=== PATIENT | female | born 1950 | race Caucasian/White ===

== ENCOUNTER 2020-07-18 13:22 | Emergency (ER) | payer MEDICARE, SELFPAY ==
[2020-07-18 13:36] VITALS: BP 108/72; PULSE 80; RESP 20; TEMP 36.4; O2SAT 97
[2020-07-18 14:13] LABS: Add Manual Diff / Slide Review NO; Basophils Absolute Auto 0 /uL (0-100); Basophils Percent Auto 0.7 % (0-2); Eosinophils Absolute Auto 200 /uL (0-450); Eosinophils Percent Auto 3.4 % (2-4); Hematocrit 37.8 % (36-46); Hemoglobin 12.4 g/dL (12.0-16.0); Lymphocytes Absolute Auto 1700 /uL (1100-4500); Mean Corpuscular HGB Conc 32.7 % (30-36); Mean Corpuscular Hemoglobin 31.1 PG (26-34); Mean Corpuscular Volume 95.2 fL (80-100); Monocytes Absolute Auto 600 /uL (0-900); Monocytes Percent Auto 9.7 % (3-14); Neutrophils Absolute Auto 3300 /uL (1500-7000); Neutrophils Percent Auto 56.2 % (50-75); Platelet Count 223 X10^3/uL (150-400); Red Blood Cell Count 3.97 X10^6/uL (4.0-5.2); Red Cell Distribution Width 13.5 % (11.6-14.8); White Blood Cell Count 5.8 X10^3/uL (4.5-11.0)
[2020-07-18 14:20] LABS: Prothrombin Time 11.1 SECONDS (10.1-12.7)
[2020-07-18] MEDS: KETOROLAC 60 MG/2 ML VIAL 15 MG IV (14:20)
[2020-07-18] MEDS: SODIUM CHLORIDE 0.9% 1,000 ML 150 ML IV (14:20)
[2020-07-18] MEDS: ONDANSETRON 4 MG/2 ML INJ IV (14:20)
[2020-07-18 14:22] LABS: PTT Partial Thromboplastin Tim 32 SECONDS (26.4-36.2)
[2020-07-18 14:24] LABS: Alanine Aminotransferase 17 IU/L (<35); Albumin 4.3 g/dL (3.5-5.0); Albumin Globulin Ratio 1.7 (1.0-2.8); Alkaline Phosphatase 73 U/L (38-126); Aspartate Aminotransferase 28 IU/L (14-36); BUN Creatinine Ratio 26.7 (6-22); Bilirubin Total 0.5 mg/dL (0.2-1.3); Blood Urea Nitrogen 23 mg/dL (7-17); Calcium 9.8 mg/dL (8.4-10.2); Carbon Dioxide 28 mmol/L (22-32); Chloride 102 mmol/L (98-107); Estimated Glomerular Filt Rate > 60.0 mL/min (>60); Globulin 2.6 g/dL (1.7-4.1); Glucose 128 mg/dL (80-110); HEMOLYSIS < 15 (0-50); Lipase 175 U/L (23-300); Potassium 3.8 mmol/L (3.4-5.1); Sodium 137 mmol/L (137-145); Total Protein 6.9 g/dL (6.3-8.2)
--- NOTE | 2020-07-18 14:52 | DI.CT.S_ITS ---
PROCEDURE: CT KIDNEY URETER BLADDER (KUB) INDICATIONS: Right flank pain TECHNIQUE: Noncontrast 5 mm thick sections acquired from the diaphragms to the symphysis. 5 mm thick coronal and sagittal reformats were then performed. For radiation dose reduction, the following was used: automated exposure control, adjustment of mA and/or kV according to patient size. COMPARISON: None. FINDINGS: Image quality: Excellent. Lung bases: Lung bases are clear. Heart size is normal. There is a small hiatal hernia. There is moderate concentric thickening of the distal esophagus. Urinary system: There is a 9 x 7 x 9 mm stone at the left uterine pelvic junction. There is mild left hydronephrosis. There are 3 small foci of 1-2 mm calcifications in right kidney. No right hydronephrosis. Both kidneys are normal in size. Kidneys demonstrate lobular contour. There are several small cortical hyperdense nodules in left kidney. Both ureters appear non-dilated throughout their expected courses. There is a 2 mm calcification along the course of the distal right ureter, suspicious for tiny stone. Bladder wall thickness is normal; no calcified bladder stones. Other solid organs: Liver is normal in size. Gallbladder is absent. Pancreas is normal in contours. Spleen is normal in size. There are small calcific foci in spleen, consistent with old granulomas. No adrenal nodules. Peritoneum and bowel: Gastric banding. Unenhanced bowel loops demonstrate normal wall thickness and caliber. Normal appendix. There is a large amount of stool in colon. No free fluid or air. Nodes and vessels: No retroperitoneal or mesenteric adenopathy by size criteria. Aorta and inferior vena cava are normal in caliber. Abdominal wall: No ventral hernias. Pelvis: Uterus is normal. No adnexal mass. No free pelvic fluid. No inguinal hernias or adenopathy. Bones: No suspicious bony lesions. No vertebral body compression fractures. Severe degenerative changes in lumbar spine. IMPRESSION: 1. A 9 x 7 x 9 mm stone at the left UPJ causing mild left hydronephrosis. 2. Possible 2 mm distal right ureteral stone. No right hydronephrosis. 3. Small nonobstructing right renal calculi. No right hydronephrosis. 4. Hyperdense cortical nodules in left kidney. Recommend follow-up ultrasound to document cystic nature. 5. Concentric thickening of the distal esophagus. Recommend upper endoscopy for follow-up evaluation. 6. A large amount of stool in colon. Dictated by: Elissa Davies M.D. on 07/18/2020 at 14:51 Approved by: Elissa Davies M.D. on 07/18/2020 at 15:17
--- NOTE | 2020-07-18 15:19 | ED_ITS ---
HPI - Abdominal Pain <JOSE Walton - Last Filed: 07/18/20 20:58> General Chief Complaint: Abdominal Pain Stated Complaint: THINKS PASSING KIDNEY STONE LOTS OF PAIN Time Seen by Provider: 07/18/20 14:20 Source: patient Mode of arrival: Ambulatory History of Present Illness HPI narrative: 70yo female with a history of kidney stones, presents to emergency department for concern of a right-sided kidney stone. She states approximately 2 days ago she developed right flank pain and then developed nausea today. Patient denies any abdominal pain, vomiting, fevers, dysuria, diarrhea, or any other concerns. Patient states she recently moved to [place] from [place] and does not have a urologist and [place]. Related Data Previous Rx's Medication Instructions Recorded ciprofloxacin HCl 500 mg PO BID 7 Days #14 tab 07/18/20 ondansetron 4 mg PO Q8H PRN #14 tab 07/18/20 oxycodone-acetaminophen [Percocet] 1 tab PO Q4-6H PRN #14 tab 07/18/20 tamsulosin 0.4 mg PO DAILY 20 Days #20 cap 07/18/20 Allergies Allergy/AdvReac Type Severity Reaction Status Date / Time No Known Drug Allergies Allergy Verified 07/18/20 13:38 Review of Systems <JOSE Walton - Last Filed: 07/18/20 20:58> Review of Systems Narrative: REVIEW OF SYSTEMS: GENERAL: Denies fever, chills, malaise, or wt. loss. HENT: No head trauma, sore throat, or dysphagia. EYES: No vision changes. CARDIOVASCULAR: No chest pain. RESPIRATORY: No shortness of breath or cough. GASTROINTESTINAL: Complains of nausea, see HPI GENITOURINARY: Reports right-sided flank pain, see HPI. MUSCULOSKELETAL: No pain, weakness, or trauma. INTEGUMENTARY: No rash, lesions, or pruritus. NEURO: No numbness, tingling, memory loss, confusion, or headaches. PSYCH: No behavior or mood changes. Patient History <JOSE Walton - Last Filed: 07/18/20 20:58> Medical History Renal calculi (Acute) Social History Smoking Status: Never smoker Smoking Status: Never smoker Exam <JOSE Walton - Last Filed: 07/18/20 20:58> Initial Vital Signs Initial Vital Signs: Vital Signs Temperature 97.5 F L 07/18/20 13:36 Pulse Rate 80 07/18/20 13:36 Respiratory Rate 20 07/18/20 13:36 Blood Pressure 108/72 07/18/20 13:36 Pulse Oximetry 97 07/18/20 13:36 PHYSICAL EXAMINATION: GENERAL: Well groomed, alert, and cooperative. Answers questions promptly and appropriately. Vital signs noted. HENT: Normocephalic, atraumatic. Hearing intact. Oral mucosa is pink and moist. EYES: Conjunctiva pink, sclera white, no periorbital swelling. CARDIOVASCULAR: S1 and S2 sounds normal. Regular rate and rhythm, no murmurs, clicks, or bruits. No pedal edema. RESPIRATORY: Normal respiratory rate, trachea midline, airway patent. No stridor, nasal flaring or accessory muscle use. Lungs are clear in all mustafa without wheeze, rhonchi, or crackles. GASTROINTESTINAL: Bowel sounds normoactive. Abdomen is soft and [non-tender]. No organomegaly, no palpable masses. GENITALURINARY: Right flank tenderness. MUSCULOSKELETAL: Normal gait and coordination. Equal tone and mass bilaterally. EXTREMITIES: CMS intact, no pedal edema. SKIN: Warm, dry, soft, appropriate color for ethnicity. No lesions, rashes, or wounds to visualized areas. NEURO: Alert and Oriented X 3. Good coordination. No ataxia, or sensory deficits, or cognitive issues. PSYCH: Appropriate affect and mood. <Lico Delarosa MD - Last Filed: 07/19/20 13:26> Initial Vital Signs Initial Vital Signs: Vital Signs Temperature 97.5 F L 07/18/20 13:36 Pulse Rate 80 07/18/20 13:36 Respiratory Rate 07/18/20 13:36 Blood Pressure 108/72 07/18/20 13:36 Pulse Oximetry 97 07/18/20 13:36 Course <JOSE Walton - Last Filed: 07/18/20 20:58> Course Course Narrative: Patient reported improved symptoms after administration of Toradol, fluids, and Zofran. Orders Ordered: Discontinued Medications Sodium Chloride (Normal Saline 0.9%) 1,000 mls @ 150 mls/hr IV CONT [facility] Last Infusion: 07/18/20 17:39 Dose: 0 mls/hr Documented by: Admin: 07/18/20 14:20 Dose: 150 mls/hr Documented by: ROSIE Ketorolac Tromethamine (Toradol) 15 mg IV NOW ONE Stop: 07/18/20 14:07 Last Admin: 07/18/20 14:20 Dose: 15 mg Documented by: ROSIE Ondansetron HCl (Zofran) 4 mg IV NOW ONE Stop: 07/18/20 14:07 Last Admin: 07/18/20 14:20 Dose: 4 mg Documented by: ROSIE Oxycodone/Acetaminophen (Percocet 5/325) 1 tab PO NOW ONE Stop: 07/18/20 16:55 Last Admin: 07/18/20 17:18 Dose: 1 tab Documented by: ROBY Vital Signs Vital signs: Vital Signs - 8 hr 07/18/20 13:36 07/18/20 17:36 Temperature 97.5 F L Pulse Rate 80 82 Respiratory Rate 20 15 Blood Pressure 108/72 122/78 Pulse Oximetry 97 99 <Lico Delarosa MD - Last Filed: 07/19/20 13:26> Orders Ordered: Discontinued Medications Sodium Chloride (Normal Saline 0.9%) 1,000 mls @ 150 mls/hr IV CONT [facility] Last Infusion: 07/18/20 17:39 Dose: 0 mls/hr Documented by: Admin: 07/18/20 14:20 Dose: 150 mls/hr Documented by: ROSIE Ketorolac Tromethamine (Toradol) 15 mg IV NOW ONE Stop: 07/18/20 14:07 Last Admin: 07/18/20 14:20 Dose: 15 mg Documented by: ROSIE Ondansetron HCl (Zofran) 4 mg IV NOW ONE Stop: 07/18/20 14:07 Last Admin: 07/18/20 14:20 Dose: 4 mg Documented by: ROSIE Oxycodone/Acetaminophen (Percocet 5/325) 1 tab PO NOW ONE Stop: 07/18/20 16:55 Last Admin: 07/18/20 17:18 Dose: 1 tab Documented by: KSCHERE Vital Signs Vital signs: Vital Signs - 8 hr 07/18/20 13:36 07/18/20 17:36 Temperature 97.5 F L Pulse Rate 80 82 Respiratory Rate 20 15 Blood Pressure 108/72 122/78 Pulse Oximetry 97 99 MDM - Abdominal Pain <JOSE Walton - Last Filed: 07/18/20 20:58> Medical Records Attestation: I reviewed the patient's medical records. Lab Data Attestation: I reviewed the patient's lab results. Result diagrams: 07/18/20 14:05 07/18/20 14:05 Labs: Lab Results 07/18/20 07/18/20 07/18/20 Range/Units 14:05 14:05 14:05 WBC 5.8 (4.5-11.0) X10^3/uL RBC 3.97 L (4.0-5.2) X10^6/uL Hgb 12.4 (12.0-16.0) g/dL Hct 37.8 (36-46) % MCV 95.2 (80-100) fL MCH 31.1 (26-34) PG MCHC 32.7 (30-36) % RDW 13.5 (11.6-14.8) % Plt Count 223 (150-400) X10^3/uL Neut % (Auto) 56.2 (50-75) % Lymph % (Auto) 30.0 (25-40) % [facility] % (Auto) 9.7 (3-14) % Eos % (Auto) 3.4 (2-4) % Baso % (Auto) 0.7 (0-2) % Neut # (Auto) 3300 (2571-5128) /uL Lymph # (Auto) 1700 (1890-0103) /uL [facility] [place] # (Auto) 600 (0-900) /uL Eos # (Auto) 200 (0-450) /uL Baso # (Auto) 0 (0-100) /uL PT 11.1 (10.1-12.7) SECONDS INR 1.0 (0.9-1.3) APTT 32 (26.4-36.2) SECONDS Sodium 137 (137-145) mmol/L Potassium 3.8 (3.4-5.1) mmol/L Chloride 102 (98-107) mmol/L Carbon Dioxide 28 (22-32) mmol/L BUN 23 H (7-17) mg/dL Creatinine 0.86 (0.52-1.04) mg/dL Estimated GFR > 60.0 (>60) mL/min BUN/Creatinine Ratio 26.7 H (6-22) Glucose 128 H (80-110) mg/dL Calcium 9.8 (8.4-10.2) mg/dL Total Bilirubin 0.5 (0.2-1.3) mg/dL AST 28 (14-36) IU/L ALT 17 (<35) IU/L Alkaline Phosphatase 73 (38-126) U/L Total Protein 6.9 (6.3-8.2) g/dL Albumin 4.3 (3.5-5.0) g/dL Globulin 2.6 (1.7-4.1) g/dL Albumin/Globulin Ratio 1.7 (1.0-2.8) Lipase 175 (23-300) U/L Urine RBC (0-5/HPF) Urine WBC (0-5/HPF) Ur Squamous Epith Cells (0-5/HPF) Amorphous Sediment Urine Bacteria (None) Ur Culture Indicated? 07/18/20 Range/Units 15:47 WBC (4.5-11.0) X10^3/uL RBC (4.0-5.2) X10^6/uL Hgb (12.0-16.0) g/dL Hct (36-46) % MCV (80-100) fL MCH (26-34) PG MCHC (30-36) % RDW (11.6-14.8) % Plt Count (150-400) X10^3/uL Neut % (Auto) (50-75) % Lymph % (Auto) (25-40) % [place] % (Auto) (3-14) % Eos % (Auto) (2-4) % Baso % (Auto) (0-2) % Neut # (Auto) (9663-2034) /uL Lymph # (Auto) (5091-2891) /uL [facility] # (Auto) (0-900) /uL Eos # (Auto) (0-450) /uL Baso # (Auto) (0-100) /uL PT (10.1-12.7) SECONDS INR (0.9-1.3) APTT (26.4-36.2) SECONDS Sodium (137-145) mmol/L Potassium (3.4-5.1) mmol/L Chloride (98-107) mmol/L Carbon Dioxide (22-32) mmol/L BUN (7-17) mg/dL Creatinine (0.52-1.04) mg/dL Estimated GFR (>60) mL/min BUN/Creatinine Ratio (6-22) Glucose (80-110) mg/dL Calcium (8.4-10.2) mg/dL Total Bilirubin (0.2-1.3) mg/dL AST (14-36) IU/L ALT (<35) IU/L Alkaline Phosphatase (38-126) U/L Total Protein (6.3-8.2) g/dL Albumin (3.5-5.0) g/dL Globulin (1.7-4.1) g/dL Albumin/Globulin Ratio (1.0-2.8) Lipase (23-300) U/L Urine RBC None seen (0-5/HPF) Urine WBC 5-10/hpf H (0-5/HPF) Ur Squamous Epith Cells 0-1 /hpf (0-5/HPF) Amorphous Sediment 1+ Urine Bacteria Occasional (0-1) (None) Ur Culture Indicated? Specimen cultured Point of care testing: Urine Dip Bedside Urine Glucose Negative Bedside Urine Bilirubin - Negative Bedside Urine Ketone - Negative Urine Specific [place] 1.015 Bedside Urine Occult Blood - Negative Bedside Urine pH 5.5 Bedside Urine Protein - Negative Bedside Urine Urobilinogen - Negative Bedside Urine Nitrite - Negative Bedside Urine Leukocytes + [address] scan - abdomen/pelvis: Radiologist's Impression: [address] [address] [address] Scan Report Signed Patient: Marina Kaur FMR#: [id number] : 1Acct:[id number] Age/Sex: 70 / FDate of Service: 07/18/20 Loc: ED Accession Number: [id number] Procedure: CT kidney ureter bladder (KUB) Ordering Provider: Rahel Perez PROCEDURE: CT KIDNEY URETER BLADDER (KUB) INDICATIONS: Right flank pain TECHNIQUE: Noncontrast 5 mm thick sections acquired from the diaphragms to the symphysis. 5 mm thick coronal and sagittal reformats were then performed. For radiation dose reduction, the following was used: automated exposure control, adjustment of mA and/or kV according to patient size. COMPARISON: None. FINDINGS: Image quality: Excellent. Lung bases: Lung bases are clear. Heart size is normal. There is a small hiatal hernia. There is moderate concentric thickening of the distal esophagus. Urinary system: There is a 9 x 7 x 9 mm stone at the left uterine pelvic junction. There is mild left hydronephrosis. There are 3 small foci of 1-2 mm calcifications in right kidney. No right hydronephrosis. Both kidneys are normal in size. Kidneys demonstrate lobular contour. There are several small cortical hyperdense nodules in left kidney. Both ureters appear non-dilated throughout their expected courses. There is a 2 mm calcification along the course of the distal right ureter, suspicious for tiny stone. Bladder wall thickness is normal; no calcified bladder stones. Other solid organs: Liver is normal in size. Gallbladder is absent. Pancreas is normal in contours. Spleen is normal in size. There are small calcific foci in spleen, consistent with old granulomas. No adrenal nodules. Peritoneum and bowel: Gastric banding. Unenhanced bowel loops demonstrate normal wall thickness and caliber. Normal appendix. There is a large amount of stool in colon. No free fluid or air. Nodes and vessels: No retroperitoneal or mesenteric adenopathy by size criteria. Aorta and inferior vena cava are normal in caliber. Abdominal wall: No ventral hernias. Pelvis: Uterus is normal. No adnexal mass. No free pelvic fluid. No inguinal hernias or adenopathy. Bones: No suspicious bony lesions. No vertebral body compression fractures. Severe degenerative changes in lumbar spine. IMPRESSION: 1. A 9 x 7 x 9 mm stone at the left UPJ causing mild left hydronephrosis. 2. Possible 2 mm distal right ureteral stone. No right hydronephrosis. 3. Small nonobstructing right renal calculi. No right hydronephrosis. 4. Hyperdense cortical nodules in left kidney. Recommend follow-up ultrasound to document cystic nature. 5. Concentric thickening of the distal esophagus. Recommend upper endoscopy for follow-up evaluation. 6. A large amount of stool in colon. Dictated by: Elissa Davies M.D. on 07/18/2020 at 14:51 Approved by: Elissa Davies M.D. on 07/18/2020 at 15:17 ECG Data Interpretation: History and examination consistent with renal calculi as seen on CT. Patient has a fairly large renal calculi with a mild hydronephrosis, renal function intact. Given white blood cells and bacteria in urine, patient was started on antibiotics. She currently has a urologist in [place], she was encouraged to call them immediately and schedule an appointment. Patient was discharged with tamsulosin, pain medication, antibiotics, and nausea medication. She was encouraged to return emergency department immediately for any new or worsening symptoms. Less concern for sepsis given the lack of tachycardia or fever. Patient agreed to plan of care verbalized understanding. <Lico Delarosa MD - Last Filed: 07/19/20 13:26> Lab Data Labs: Lab Results 07/18/20 07/18/20 07/18/20 Range/Units 14:05 14:05 14:05 WBC 5.8 (4.5-11.0) X10^3/uL RBC 3.97 L (4.0-5.2) X10^6/uL Hgb 12.4 (12.0-16.0) g/dL Hct 37.8 (36-46) % MCV 95.2 (80-100) fL MCH 31.1 (26-34) PG MCHC 32.7 (30-36) % RDW 13.5 (11.6-14.8) % Plt Count 223 (150-400) X10^3/uL Neut % (Auto) 56.2 (50-75) % Lymph % (Auto) 30.0 (25-40) % [facility] % (Auto) 9.7 (3-14) % Eos % (Auto) 3.4 (2-4) % Baso % (Auto) 0.7 (0-2) % Neut # (Auto) 3300 (8909-8651) /uL Lymph # (Auto) 1700 (0263-0955) /uL [facility] [place] # (Auto) 600 (0-900) /uL Eos # (Auto) 200 (0-450) /uL Baso # (Auto) 0 (0-100) /uL PT 11.1 (10.1-12.7) SECONDS INR 1.0 (0.9-1.3) APTT 32 (26.4-36.2) SECONDS Sodium 137 (137-145) mmol/L Potassium 3.8 (3.4-5.1) mmol/L Chloride 102 (98-107) mmol/L Carbon Dioxide 28 (22-32) mmol/L BUN 23 H (7-17) mg/dL Creatinine 0.86 (0.52-1.04) mg/dL Estimated GFR > 60.0 (>60) mL/min BUN/Creatinine Ratio 26.7 H (6-22) Glucose 128 H (80-110) mg/dL Calcium 9.8 (8.4-10.2) mg/dL Total Bilirubin 0.5 (0.2-1.3) mg/dL AST 28 (14-36) IU/L ALT 17 (<35) IU/L Alkaline Phosphatase 73 (38-126) U/L Total Protein 6.9 (6.3-8.2) g/dL Albumin 4.3 (3.5-5.0) g/dL Globulin 2.6 (1.7-4.1) g/dL Albumin/Globulin Ratio 1.7 (1.0-2.8) Lipase 175 (23-300) U/L Urine RBC (0-5/HPF) Urine WBC (0-5/HPF) Ur Squamous Epith Cells (0-5/HPF) Amorphous Sediment Urine Bacteria (None) Ur Culture Indicated? 07/18/20 Range/Units 15:47 WBC (4.5-11.0) X10^3/uL RBC (4.0-5.2) X10^6/uL Hgb (12.0-16.0) g/dL Hct (36-46) % MCV (80-100) fL MCH (26-34) PG MCHC (30-36) % RDW (11.6-14.8) % Plt Count (150-400) X10^3/uL Neut % (Auto) (50-75) % Lymph % (Auto) (25-40) % [place] % (Auto) (3-14) % Eos % (Auto) (2-4) % Baso % (Auto) (0-2) % Neut # (Auto) (0143-1372) /uL Lymph # (Auto) (5559-9632) /uL [facility] [place] # (Auto) (0-900) /uL Eos # (Auto) (0-450) /uL Baso # (Auto) (0-100) /uL PT (10.1-12.7) SECONDS INR (0.9-1.3) APTT (26.4-36.2) SECONDS Sodium (137-145) mmol/L Potassium (3.4-5.1) mmol/L Chloride (98-107) mmol/L Carbon Dioxide (22-32) mmol/L BUN (7-17) mg/dL Creatinine (0.52-1.04) mg/dL Estimated GFR (>60) mL/min BUN/Creatinine Ratio (6-22) Glucose (80-110) mg/dL Calcium (8.4-10.2) mg/dL Total Bilirubin (0.2-1.3) mg/dL AST (14-36) IU/L ALT (<35) IU/L Alkaline Phosphatase (38-126) U/L Total Protein (6.3-8.2) g/dL Albumin (3.5-5.0) g/dL Globulin (1.7-4.1) g/dL Albumin/Globulin Ratio (1.0-2.8) Lipase (23-300) U/L Urine RBC None seen (0-5/HPF) Urine WBC 5-10/hpf H (0-5/HPF) Ur Squamous Epith Cells 0-1 /hpf (0-5/HPF) Amorphous Sediment 1+ Urine Bacteria Occasional (0-1) (None) Ur Culture Indicated? Specimen cultured Point of care testing: Urine Dip Bedside Urine Glucose Negative Bedside Urine Bilirubin - Negative Bedside Urine Ketone - Negative Urine Specific [place] 1.015 Bedside Urine Occult Blood - Negative Bedside Urine pH 5.5 Bedside Urine Protein - Negative Bedside Urine Urobilinogen - Negative Bedside Urine Nitrite - Negative Bedside Urine Leukocytes + 70 Esterase Discharge Plan Departure Patient Disposition: Home Clinical Impression: Calculus, renal Discharge Date/Time: 07/18/20 17:38 Instructions: Kidney Stones -- Adult Activity Restrictions/Additional Instructions: Thank you for entrusting me with your care today. As discussed, you have a kidney stone in your left ureter and it looks like a kidney stone in your right distal ureter that is about the past. Additionally, there was some bacteria in urine. I prescribed you antibiotics. These antibiotics can cause a side effect of Achilles tendon rupture, do not over exert herself while taking these. I prescribed you a medication to help you past a kidney stone. In addition, I prescribed you nausea and pain medication. You have been prescribed a narcotic medication, this medication can make you drowsy. Do not drive while using this medication or perform activities that require mental alertness. These medications can also make you constipated, please use [id number] docusate sodium as needed for constipation. Is very important that you call your urologist tomorrow to schedule a follow-up appointment. Please tell them you were seen in the emergency department and have a large kidney stone with mild hydronephrosis. Prescriptions: New tamsulosin 0.4 mg capsule 0.4 mg PO DAILY 20 Days Qty: 20 RF: 0 ondansetron 4 mg tablet,disintegrating 4 mg PO Q8H PRN (Reason: nausea and vomiting) Qty: 14 RF: 0 oxycodone-acetaminophen [Percocet] 5-325 mg tablet 1 tab PO Q4-6H PRN (Reason: pain) Qty: 14 RF: 0 ciprofloxacin HCl 500 mg tablet 500 mg PO BID 7 Days Qty: 14 RF: 0 <Lico Delarosa MD - Last Filed: 07/19/20 13:26> Cosign ED Attending Cosignature Attestation: I personally evaluated and examined the pa tient and agree with the assessment, treatment plan, and disposition of the patient as recorded by the APC.
[2020-07-18 17:01] LABS: RBC Urine None Seen (0-5/HPF)
[2020-07-18 17:15] LABS: Amorphous Sediment Urine 1+; Bacteria Urine Occasional (0-1); Culture Indicated Urine Specimen Cultured; Squamous Epithelial Cell Urine 0-1 /HPF (0-5/HPF); WBC Urine 5-10/HPF (0-5/HPF)
[2020-07-18] MEDS: OXYCODONE/ACETAMINOPHEN 5/325 TABLET 1 TAB PO (17:18)
[2020-07-18 17:36] VITALS: BP 122/78; PULSE 82; RESP 15; O2SAT 99
== END 2020-07-18 17:38 | disposition home or self-care (01) ==
PROVIDERS: Emergency Medicine; Emergency Provider Nurse Practitioner
DX: N20.0 Calculus of kidney (principal); R11.0 Nausea
CPT/HCPCS: 36415; 74176; 80053; 81003; 81015; 83690; 85025; 85610; 85730; 87086; 96361; 96374; 96375; 99284; J1885; J2405

== ENCOUNTER → 2020-07-24 10:34 | Outpatient (CLI) | payer MEDICARE, SELFPAY ==
--- NOTE | 2020-07-24 | DI.RAD.S_ITS ---
PROCEDURE: XR ABDOMEN 1V INDICATIONS: Calculus of kidney TECHNIQUE: One view of the abdomen acquired. COMPARISON: [facility], CT, CT KIDNEY URETER BLADDER (KUB), 07/18/2020, 14:48. FINDINGS: Surgical changes and devices: Postsurgical fax related to laparoscopic gastric banding.. Left renal calculus, better seen on the comparison CT. This measures approximately 9 mm. There is a stellate appearance. Bones: No suspicious bony lesions. Diffuse spondylosis and mild bilateral hip joint degeneration. IMPRESSION: Left renal calculus as depicted on the recent comparison CT from 07/18/20. This appears unchanged in position Dictated by: Jose Antonio Rosario M.D. on 07/24/2020 at 13:46 Approved by: Jose Antonio Rosario M.D. on 07/24/2020 at 13:48
== END ==
PROVIDERS: Referring Provider Physician Assistant Surgical; Visit Provider Physician Assistant Surgical
DX: N20.0 Calculus of kidney (principal); M16.0 Bilateral primary osteoarthritis of hip; M47.819 Spondylosis without myelopathy or radiculopathy, site unspecified; Z98.84 Bariatric surgery status
CPT/HCPCS: 74018